=== PATIENT | female | born 1960 | race Caucasian/White ===

== ENCOUNTER 2023-11-02 14:39 | Inpatient (IN) | payer OTHER ==
[~2023-11-02] VITALS: Ht 162.6 cm; Wt 72.6 kg
[~2023-11-02 14:39] MED LIST: ASPI-1822 PO; LISI5TAB18 PO; METO25TA14 PO
[2023-11-02 14:47] VITALS: BP 155/92; PULSE 88; RESP 19; TEMP 98.4; O2SAT 95
[2023-11-02] MEDS ORDERED: ONDANSETRON 4 MG/2 ML VIAL IVP ONE (15:15)
[2023-11-02] MEDS ORDERED: NACL 0.9% 1,000 ML IV ONE (15:15)
[2023-11-02] MEDS ORDERED: LIDOCAINE/EPI MPF 1%1:200000 30 ML VIAL INJ ONE (15:20)
[2023-11-02 15:51] LABS: BASOPHILS # (AUTO) 0.1 K/uL (0.00-0.22); BASOPHILS % (AUTO) 0.7 % (0.0-2.0); EOSINOPHILS # (AUTO) 0.1 K/uL (0-0.4); EOSINOPHILS % (AUTO) 1.2 % (0.0-4.0); HEMATOCRIT 38.8 % (36-48); HEMOGLOBIN 13.4 g/dL (12.0-16.0); LYMPHOCYTES % (AUTO) 27.7 % (20.5-51.1); MEAN CORPUSCULAR HEMOGLOBIN 30 pg (27-31); MEAN CORPUSCULAR HGB CONC 35 g/dL (33-37); MEAN CORPUSCULAR VOLUME 87.2 fL (80-94); MONOCYTES # (AUTO) 0.4 K/uL (0.8-1.0); MONOCYTES % (AUTO) 5.4 % (1.7-9.3); NEUTROPHILS # (AUTO) 4.8 K/uL (1.8-7.7); PLATELET COUNT (AUTO) 229 K/uL (140-450); RED BLOOD CELL COUNT(AUTO) 4.45 MIL/uL (4.20-5.40); RED CELL DISTRIBUTION WIDTH 14.2 % (11.6-13.7); WHITE BLOOD COUNT (AUTO) 7.4 K/uL (4.8-10.8)
[2023-11-02 16:10] LABS: APPEARANCE,URINE CLEAR (CLEAR); BILIRUBIN,URINE NEGATIVE (NEGATIVE); BLOOD, URINE TRACE-I (NEGATIVE); COLOR,URINE YELLOW (YELLOW); LEUKOCYTE ESTERASE ,URINE NEGATIVE (NEGATIVE); NITRITE, URINE NEGATIVE (NEGATIVE); PH,URINE 6.5 (5.0-9.0); PROTEIN,URINE NEGATIVE (NEGATIVE); UGLUCOSE NEGATIVE (NEGATIVE); UROBILINOGEN,URINE 0.2 EU/dL (0.2 - 1)
[2023-11-02 16:11] LABS: ANION GAP 14.6 (8-16); CARBON DIOXIDE 24.3 mmol/L (21-32); CREATININE 0.7 mg/dL (0.6-1.3)
[2023-11-02 16:19] LABS: ALANINE AMINOTRANSFERASE 37 U/L (12-78); ALBUMIN 3.5 g/dL (3.4-5.0); ALCOHOL, BLOOD 173 mg/dL (<10); ALKALINE PHOSPHATASE 77 U/L (50-136); ASPARTATE AMINOTRANSFERASE 51 U/L (15-37); BILIRUBIN,DIRECT 0.1 mg/dL (0.0-0.3); TOTAL BILIRUBIN 0.6 mg/dL (0.0-1.0); TOTAL PROTEIN, SERUM 8.2 g/dL (6.4-8.2)
[2023-11-02 16:39] LABS: ACETAMINOPHEN < 0.5 ug/ml (10-30); SALICYLATE < 2.8 mg/dL (2.8-20.0)
[2023-11-02 16:42] LABS: POTASSIUM 2.9 mmol/L (3.5-5.1)
[2023-11-02] MEDS ORDERED: ONDANSETRON 4 MG/2 ML VIAL ONE (17:10)
[2023-11-02 17:37] LABS: OPIATE, URINE POSITIVE ng/mL (NEG <=2000)
[2023-11-02 17:38] LABS: AMPHETAMINE, URINE NEGATIVE ng/ml (NEG <=1000); BARBITURATE, URINE NEGATIVE ng/ml (NEG <=200); BENZODIAZEPINE, URINE POSITIVE ng/mL (NEG <=200); CANNABINOID, URINE NEGATIVE ng/mL (NEG <=50); COCAINE, URINE NEGATIVE ng/mL (NEG <=300); PHENCYCLIDINE SCREEN,URINE NEGATIVE ng/mL (NEG <=25)
[2023-11-02] MEDS ORDERED: ASPIRIN 325 MG TAB PO ONE (18:15)
[2023-11-02] MEDS ORDERED: MAG SULF 2000 MG/WATER PREMIX 50 ML IV ONE (18:35)
[2023-11-02] MEDS ORDERED: POTASSIUM CHLORIDE 20% 40 MEQ/15 ML UDC PO ONE (18:35)
[2023-11-02] MEDS ORDERED: HEPARIN PER PHARMACY MC PRN (19:20)
[2023-11-02] MEDS ORDERED: ONDANSETRON 4 MG/2 ML VIAL IVP PRN (19:55)
[2023-11-02] MEDS ORDERED: LORazepam 2 MG/ML VIAL IVP PRN (19:55)
[2023-11-02] MEDS: NACL 0.9% 1,000 ML IV SCH (19:55)
[2023-11-02 20:11] LABS: INR 1.01 (0.8-1.2); PARTIAL THROMBOPLASTIN TIME 22.4 secs (22-35.6); PROTHROMBIN TIME 10.6 secs (10.8-13.4)
[2023-11-02] MEDS ORDERED: chlordiazePOXIDE 25 MG CAP PO ONE (20:50)
[2023-11-02 22:00] VITALS: BP 140/96; PULSE 71; PULSE 78; RESP 16; TEMP 98; O2SAT 98
[2023-11-02] MEDS ORDERED: ACETAMINOPHEN 325 MG TAB PO PRN (22:00)
[2023-11-02] MEDS ORDERED: POTASSIUM CHLORIDE 20% 40 MEQ/15 ML UDC ONE (22:21)
[2023-11-02] MEDS: MORPHINE SULFATE 2 MG/ML SYR IVP PRN (22:30)
[2023-11-03] VITALS: BP 136/78; PULSE 89; TEMP 98.3; O2SAT 96
[2023-11-03] MEDS: HYDROcodone/APAP 5/325 MG 1 TAB TAB PO PRN ×2 (00:31→07:02)
[2023-11-03] MEDS: MORPHINE SULFATE 2 MG/ML SYR IVP PRN ×5 (02:54→21:22)
[2023-11-03 04:00] VITALS: BP 137/93; PULSE 74; PULSE 75; TEMP 97.7; O2SAT 98
[2023-11-03] MEDS: NACL 0.9% 1,000 ML IV SCH ×2 (05:55→13:33)
[2023-11-03 06:27] LABS: BASOPHILS % (AUTO) 0.3 % (0.0-2.0); EOSINOPHILS # (AUTO) 0.3 K/uL (0-0.4); EOSINOPHILS % (AUTO) 4.9 % (0.0-4.0); HEMOGLOBIN 11.7 g/dL (12.0-16.0); LYMPHOCYTES # (AUTO) 2.9 K/uL (2.5-16.5); LYMPHOCYTES % (AUTO) 48.3 % (20.5-51.1); MEAN CORPUSCULAR HEMOGLOBIN 30 pg (27-31); MEAN CORPUSCULAR HGB CONC 34 g/dL (33-37); MEAN CORPUSCULAR VOLUME 87.2 fL (80-94); MONOCYTES # (AUTO) 0.4 K/uL (0.8-1.0); MONOCYTES % (AUTO) 6.5 % (1.7-9.3); NEUTROPHILS # (AUTO) 2.4 K/uL (1.8-7.7); PLATELET COUNT (AUTO) 186 K/uL (140-450); RED CELL DISTRIBUTION WIDTH 14.4 % (11.6-13.7)
[2023-11-03 06:35] LABS: ANION GAP 11.2 (8-16); CALCIUM 8.1 mg/dL (8.5-10.1); CARBON DIOXIDE 27.4 mmol/L (21-32); CREATININE 0.8 mg/dL (0.6-1.3); POTASSIUM 3.6 mmol/L (3.5-5.1)
[2023-11-03 06:44] LABS: MAGNESIUM 1.6 mg/dL (1.8-2.4); PHOSPHORUS 3.3 mg/dL (2.5-4.9)
[2023-11-03 08:00] VITALS: BP 128/61; PULSE 117; PULSE 73; RESP 18; TEMP 97.7; O2SAT 96
[2023-11-03] MEDS: chlordiazePOXIDE 25 MG CAP PO SCH ×3 (08:29→16:52)
[2023-11-03] MEDS: THIAMINE 100 MG TAB PO SCH (08:29)
[2023-11-03] MEDS: FOLIC ACID 1 MG TAB PO SCH (08:29)
[2023-11-03] MEDS ORDERED: HYDROcodone/APAP 5/325 MG 1 TAB TAB PO PRN (08:37)
[2023-11-03] MEDS ORDERED: MAGNESIUM OXIDE 400 MG TAB PO ONE (08:40)
[2023-11-03] MEDS: MULTIVITAMIN 1 TAB PO SCH (08:54)
[2023-11-03] MEDS ORDERED: chlordiazePOXIDE 25 MG CAP PO ONE (09:00)
[2023-11-03] MEDS ORDERED: HEPARIN PER PHARMACY MC PRN (14:30)
[2023-11-03] MEDS: hePARIN / DEXT 5% PREMIX 250 ML IV SCH (15:39)
[2023-11-03 16:00] VITALS: BP 124/78; PULSE 76; RESP 18; TEMP 97.7; O2SAT 90
[2023-11-03 20:00] VITALS: BP 139/84; PULSE 89; RESP 18; TEMP 98.4; O2SAT 97
[2023-11-04] MEDS: MORPHINE SULFATE 2 MG/ML SYR IVP PRN ×5 (01:52→22:25)
[2023-11-04] MEDS: NACL 0.9% 1,000 ML IV SCH ×3 (01:55→21:55)
[2023-11-04 03:38] LABS: BASOPHILS # (AUTO) 0.1 K/uL (0.00-0.22); BASOPHILS % (AUTO) 0.7 % (0.0-2.0); EOSINOPHILS # (AUTO) 0.5 K/uL (0-0.4); EOSINOPHILS % (AUTO) 7.4 % (0.0-4.0); HEMOGLOBIN 11.3 g/dL (12.0-16.0); LYMPHOCYTES # (AUTO) 2.9 K/uL (2.5-16.5); LYMPHOCYTES % (AUTO) 40.2 % (20.5-51.1); MEAN CORPUSCULAR HEMOGLOBIN 30 pg (27-31); MEAN CORPUSCULAR HGB CONC 34 g/dL (33-37); MEAN CORPUSCULAR VOLUME 87.5 fL (80-94); MONOCYTES # (AUTO) 0.4 K/uL (0.8-1.0); MONOCYTES % (AUTO) 5.5 % (1.7-9.3); NEUTROPHILS # (AUTO) 3.3 K/uL (1.8-7.7); NEUTROPHILS % (AUTO) 46.2 % (42.2-75.2); PLATELET COUNT (AUTO) 171 K/uL (140-450); RED BLOOD CELL COUNT(AUTO) 3.77 MIL/uL (4.20-5.40); RED CELL DISTRIBUTION WIDTH 14.1 % (11.6-13.7); WHITE BLOOD COUNT (AUTO) 7.2 K/uL (4.8-10.8)
[2023-11-04 03:49] LABS: ANION GAP 11.5 (8-16); CALCIUM 8.3 mg/dL (8.5-10.1); CARBON DIOXIDE 30.4 mmol/L (21-32); CREATININE 0.9 mg/dL (0.6-1.3); POTASSIUM 3.9 mmol/L (3.5-5.1)
[2023-11-04 04:00] VITALS: BP 138/89; PULSE 78; RESP 18; TEMP 98.2; O2SAT 98
[2023-11-04 08:00] VITALS: BP 139/86; PULSE 84; RESP 18; TEMP 98.5; O2SAT 95
[2023-11-04] MEDS: MULTIVITAMIN 1 TAB PO SCH (08:30)
[2023-11-04] MEDS: chlordiazePOXIDE 25 MG CAP PO SCH ×3 (08:30→16:26)
[2023-11-04] MEDS: FOLIC ACID 1 MG TAB PO SCH (08:30)
[2023-11-04] MEDS: THIAMINE 100 MG TAB PO SCH (08:30)
[2023-11-04] MEDS ORDERED: MAG SULF 2000 MG/WATER PREMIX 50 ML IV SCH (11:40)
[2023-11-04] MEDS: hePARIN / DEXT 5% PREMIX 250 ML IV SCH (13:05)
[2023-11-04 16:00] VITALS: BP 135/85; PULSE 93; RESP 18; TEMP 97.9; O2SAT 98
[2023-11-04 20:00] VITALS: BP 146/82; PULSE 86; RESP 18; TEMP 98.7; O2SAT 95; O2SAT 98
[2023-11-04 22:25] VITALS: BP 150/89; PULSE 76; RESP 18; TEMP 98.6; O2SAT 95
[2023-11-05] MEDS: MORPHINE SULFATE 2 MG/ML SYR IVP PRN (03:09)
[2023-11-05 04:00] VITALS: BP 126/77; PULSE 76; RESP 18; TEMP 97.2; O2SAT 96
[2023-11-05] MEDS: NACL 0.9% 1,000 ML IV SCH (05:27)
== END 2023-11-05 07:50 | disposition left against medical advice (07) | DRG 604 ==
LOC: MED 14:39 → MMU 19:54 → MTU 20:48
PROVIDERS: ADMIT Family Medicine; ATTEND Family Medicine
PROC: 0HQ1XZZ Repair Face Skin, External Approach (ICD-10-PCS; principal; 2023-11-02)
DX: S01.81XA Laceration without foreign body of other part of head, initial encounter (principal); I21.4 Non-ST elevation (NSTEMI) myocardial infarction; E86.0 Dehydration; E86.1 Hypovolemia; F32.A Depression, unspecified; F10.129 Alcohol abuse with intoxication, unspecified; I11.9 Hypertensive heart disease without heart failure; I95.1 Orthostatic hypotension; Z88.6 Allergy status to analgesic agent; E87.6 Hypokalemia
CPT/HCPCS: 12014; 36415; 70450; 71045; 72125; 80048; 80076; 80305; 81003; 83690; 83735; 83880; 84100; 84484; 85025; 85379; 85610; 85730; 87081; 93005; 96361; 96374; 96375; 99285; G0480; G0482; J1644; J2001; J2270; J2405; J3475; Q0092